=== PATIENT | female | born 1985 | race Caucasian/White ===

== ENCOUNTER 2017-01-16 20:56 | Inpatient (IN) | payer BC ==
[~2017-01-16] VITALS: Ht 170.2 cm; Wt 83.0 kg
[~2017-01-16 20:56] MED LIST: BCPILLS PO
[2017-01-16] MEDS ORDERED: LACTATED RINGER'S 1000ML 1,000 ML IV SCH (20:59)
[2017-01-16] MEDS ORDERED: LACTATED RINGER'S 1000ML 1,000 ML IV PRN (20:59)
[2017-01-16 21:43] LABS: HEMATOCRIT 34.3 % (37-47); MEAN CELL VOLUME 82.5 fL (80-100); MEAN CORPUSCULAR HEMOGLOBIN 27.6 pg (25-34); MEAN CORPUSCULAR HGB CONC 33.5 g/dl (32-36); MEAN PLATELET VOLUME 9.6 fL (7.4-10.4); PLATELET COUNT 207 K/uL (130-400); RED BLOOD COUNT 4.16 M/uL (4.2-5.4); WHITE BLOOD COUNT 10.01 K/uL (4.8-10.8)
[2017-01-16] MEDS ORDERED: LACTATED RINGER'S 1000ML 500 ML IV PRN (21:43)
[2017-01-16] MEDS ORDERED: OXYTOCIN 30 UNITS/500ML NSS IV PRN (21:45)
[2017-01-16] MEDS ORDERED: MAGN400T6 PO (22:34)
[2017-01-16] MEDS ORDERED: FOLI1TAB7 PO (22:34)
[2017-01-16 22:37] VITALS: Ht 170.2 cm; Wt 83.0 kg
[2017-01-17] MEDS ORDERED: LACTATED RINGER'S 1000ML 1,000 ML IV SCH (03:56)
[2017-01-17] MEDS ORDERED: HYDROCORTISONE ACETATE 25 MG SUPP PR PRN (04:00)
[2017-01-17] MEDS ORDERED: LANOLIN OINT EXT PRN ×2 (04:00)
[2017-01-17] MEDS ORDERED: ACETAMINOPHEN 325 MG TAB PO PRN (04:00)
[2017-01-17] MEDS ORDERED: ACETAMINOPHEN/CODEINE 300/30MG TAB PO PRN ×2 (04:00)
[2017-01-17] MEDS ORDERED: DIPHTHERIA/TETANUS/PERTUSSIS 0.5 ML SYR/VIAL IM. ONE (04:00)
[2017-01-17] MEDS ORDERED: OXYTOCIN 30 UNITS/500ML NSS IV PRN (04:00)
[2017-01-17] MEDS ORDERED: SUPERCREAM 0.870 % 15GM JAR EXT PRN (04:00)
[2017-01-17] MEDS ORDERED: MEASLES, MUMPS & RUBELLA VIRUS VIAL SQ. ONE (04:00)
[2017-01-17] MEDS ORDERED: BENZOCAINE 20% AER SPR 82.5 GM CAN EXT PRN (04:00)
--- NOTE | 2017-01-17 04:01 | Vaginal Delivery Summary ---
Vaginal Delivery Summary Delivery Note live female over intact perineum ANABELA with Apgars 8/9 weight pending. Delayed cord clamping followed by cord blood and spontaneous delivery of intact placenta. No tears. Final sponge and instrument count are correct. Mom and bay stable.
[2017-01-17] MEDS: IBUPROFEN 600 MG TAB PO PRN ×3 (04:52→17:33)
[2017-01-17 06:05] VITALS: BP 112/59; PULSE 83; TEMP 36.5; TEMP 37
[2017-01-17] MEDS: PRENATAL VITAMIN TAB PO SCH (07:45)
[2017-01-17] MEDS: DOCUSATE SODIUM 100 MG CAP PO SCH ×2 (07:55→19:52)
[2017-01-17] MEDS: FERROUS SULFATE 325 MG TAB PO SCH (07:55)
[2017-01-17 08:45] VITALS: BP 120/71; PULSE 87; TEMP 37.2
[2017-01-17 12:15] VITALS: BP 125/72; PULSE 71; TEMP 37.5
[2017-01-17 15:50] VITALS: BP 110/69; PULSE 79; TEMP 37.5
[2017-01-17 18:45] VITALS: BP 124/75; PULSE 68; TEMP 37.2
[2017-01-17 23:25] VITALS: BP 101/63; PULSE 65; TEMP 37.2
[2017-01-18 05:15] VITALS: BP 113/75; PULSE 59; TEMP 37.1
[2017-01-18 07:31] VITALS: BP 116/79; PULSE 68; TEMP 37; O2SAT 97
[2017-01-18] MEDS: DOCUSATE SODIUM 100 MG CAP PO SCH (08:00)
[2017-01-18] MEDS: FERROUS SULFATE 325 MG TAB PO SCH (08:00)
[2017-01-18] MEDS: PRENATAL VITAMIN TAB PO SCH (08:22)
--- NOTE | 2017-01-18 08:30 | OB/GYN Progress Note ---
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 Subjective conversation w/ patient, physical exam Ambulation: ambulating normally Voiding: no voiding problems Passing Gas: Yes Diet Tolerance: Regular Diet Lochia: Moderate Feeding Type: Breast Feeding Pain: 2/10 Notes: Doing well, no concerns. Pain well controlled. Lochia decreasing. Tolerating regular diet. Ambulating without difficulty. Would like to go home today. Objective Vital Signs Date Time Temp Pulse Resp B/P (MAP) Pulse Ox O2 Delivery O2 Flow Rate FiO2 01/18/17 07:31 37.0 68 20 116/79 (91) 97 Room Air 01/18/17 05:15 37.1 59 18 113/75 (88) Room Air 01/17/17 23:25 Room Air 01/17/17 23:25 37.2 65 16 101/63 (76) Room Air 01/17/17 18:45 37.2 68 18 124/75 (91) Room Air 01/17/17 15:50 37.5 79 18 110/69 (83) Room Air 01/17/17 15:50 Room Air 01/17/17 12:15 37.5 71 18 125/72 (89) Room Air 01/17/17 08:45 37.2 87 18 120/71 (87) Room Air Physical Exam General Appearance: WELL-APPEARING Respiratory/Chest: chest non-tender, lungs clear Cardiovascular: regular rate, rhythm Abdomen: normal bowel sounds, soft Fundus: Firm Extremities: normal range of motion, non-tender, no calf tenderness Laboratory Results Last 24 Hours Test 01/18/17 04:44 Assessment and Plan Post- Day Number: 1 Continue Routine Care: -D/C home today -F/U in 6 weeks.
--- NOTE | 2017-01-18 08:31 | Discharge Instructions ---
Discharge Instructions Date of Service Jan 18, 2017. Admission Reason for Admission: Check Ruptured Membranes Discharge Discharge Diagnosis / Problem: Vaginal Delivery Discharge Goals Goal(s): Routine recovery after delivery Medications Continue Dispensed Medications: supercream, dermaplast, tucks, lansinoh Activity Recommendations Activity Limitations: per Instructions/Follow-up section . Instructions / Follow-Up Instructions / Follow-Up ACTIVITY RECOMMENDATIONS: * Gradual return to full activity over the next 2-3 weeks. * No lifting - nothing heavier than baby over the next 2-3 weeks. * Do not engage in vigorous exercise, sexual activity or sports until cleared by your physician. * Do not drive or operate any motorized equipment until cleared by your physician. * You may shower/bathe daily. BREAST CARE: If you are not breast feeding: * Wear a supportive bra 24 hours a day for one to two weeks. * Avoid stimulating your breasts and nipples as much as possible during the first few weeks after delivery. * When taking a shower, have the warm water hit your back, not breasts. * When your breasts feel full, apply ice packs. Usually three to four times a day helps ease the discomfort. * Take a mild pain medication (Tylenol/Motrin) when you are uncomfortable. If breast feeding: * Use breast milk to lubricate nipples. Lansinoh cream may be used for sore nipples. You do not need to remove cream prior to breast feeding. If using a different brand of cream, check the label for directions regarding removal of cream prior to nursing. * Wear a supportive bra. * If having problems with breasts or breast feeding, call a automotive internet sales consultant or your health care provider. EPISIOTOMY CARE: After delivery, if you have an episiotomy (stitches), the following steps will ease discomfort and aid healing. * For the first 24 hours after delivery, place ice packs next to your episiotomy to help reduce swelling. * After the first 24 hour-period, sitz baths, either portable or in the tub, are suggested. A shower with a shower arm sprayed over the episiotomy may be comforting. * Serene care should be done after each voiding and bowel movement. Squirt warm water from a plastic bottle over the perineum (region of the body between the anus and urinary opening) and pat dry. * Use Dermoplast to ease discomfort. Shake container. [place] directly over the episiotomy. * Place a Tucks on a clean sanitary pad next to your episiotomy. OVER THE COUNTER MEDICATION: * For discomfort or pain, you may use Acetaminophen (Tylenol), Ibuprofen (Advil ), or Naproxen (Aleve) following the package directions. * For constipation you may use Colace following the package directions. SPECIAL CARE INSTRUCTIONS: When you are discharged from the hospital, it is important for you to follow the instructions listed below: * During the first week at home, you should be able to care for yourself and your baby. In addition, the usual light household activities are encouraged. * Limit your activities to the way you feel. Do not try to clean the house or move furniture. Be sensible. * If you actively engage in sports and have done so up until the time of your delivery, you may resume these activities as soon as you feel able. This may take up to one month or even longer. Use good judgment. * Continue to take your vitamins for at least six weeks after the of your baby. * Your diet need not be limited unless you were on a special diet before your delivery. Breast-feeding mothers need around 2500 calories per day and at least 64-80 ounces of fluid per day (8 to 10 glasses). * You should eat foods from the four major food groups. Crash diets or fad diets are to be avoided. Eating lean meats, fresh fruits and vegetables, low-fat dairy products, high fiber foods and a regular exercise program, will help you get back to your pre- weight without putting your health at risk. * Constipation is sometimes a problem after delivery. Take a mild laxative as needed. If breast feeding, Milk of Magnesia is acceptable to use. You may use a suppository or Fleets enema if no episiotomy. * A daily shower or tub bath is suggested. Be sure to thoroughly and gently dry the perineum. * A bloody vaginal discharge will usually continue until around four weeks post . A small amount of bleeding may continue for as long as six weeks. Vaginal discharge changes from the bright red bleeding after delivery to pink then brownish and finally yellowish-pink before becoming white and disappearing. * Bleeding may increase with activity. Your first period may come in 4-8 weeks. If you are breast feeding, your period may be delayed even longer. * [place] (sex) can begin whenever both you and your partner feel comfortable and do not have any form of genital infection. It is recommended that you wait until after your return appointment and discuss with your physician. If you have questions, please talk to your health care practitioner. A condom should be used to prevent infection and . * Foreplay, gentle intercourse and lubrication is very important the first several times to prevent pain. A water-based lubricant such as K-Y jelly or Astroglide may be used. * Tampons may be used six weeks after delivery. * Douching should be avoided for 6 weeks after delivery. * If you have RH negative blood and your baby is RH positive, you will receive RHOGAM by injection prior to discharge. The nurse will give you a card to keep with you that has the date and place that you received RHOGAM after delivery. * During your care, you had a Rubella screen done to check for the presence of rubella antibodies in your blood. If your test was negative, you will receive a Rubella vaccine prior to discharge. This vaccine may cause a fever, soreness at the injection site and flu-like symptoms. If these symptoms persist, notify your health care practitioner. is not advised for three months after a Rubella vaccine. There is a higher chance of having a baby with defects if conceived within three months of getting the vaccine. * If you were discharged 24 hours from delivery or before 48 hours: Visiting nurses will come to your home 48 hours after discharge to assess you and your baby. The visiting nurse will meet with you while you are in the hospital to arrange a time and get directions to your home. * Verbalizes understanding of car seat law as reviewed with patient nursing. * Car Seat hand-out given and reviewed with patient by nursing. * Shaken baby information reviewed with patient by nursing. Call you doctor if: * Heavy bleeding (saturating several pads an hour) or passing clots the size of your fist. * A fever >101 degrees F (38.3 degrees C) on two occasions four hours apart and/or chills. * Unusual pain in the pelvic or vaginal areas. * "Baby Blues" lasting longer than two weeks. If you have any questions or concerns, call your health care practitioner at . FOLLOW-UP VISIT: * Please call the office at to schedule a 6 week examination. It is important you keep this appointment. * It is important for you to make arrangements for either yearly or twice yearly check-ups thereafter. Current Hospital Diet Patient's current hospital diet: Regular OB Diet Discharge Diet Recommended Diet: Regular OB Diet Pending Studies Studies pending at discharge: no Medical Emergencies . Who to Call and When: Medical Emergencies: If at any time you feel your situation is an emergency, please call 911 immediately. . Non-Emergent Contact Non-Emergency issues call your: Primary Care Provider, Fur Blender . . "Provider Documentation" section prepared by Todd Marion. . VTE Core Measure Inpt VTE Proph given/why not?: Treatment not indicated
[2017-01-18 08:49] LABS: HEMATOCRIT 35.1 % (37-47)
[2017-01-18 12:16] VITALS: BP_DIAS 79; PULSE 68; TEMP 37
[2017-01-18] MEDS ORDERED: BISACODYL 5 MG TABEC PO SCH (20:00)
[2017-01-19] MEDS ORDERED: BISACODYL 10 MG SUPP PR PRN (07:00)
== END 2017-01-18 13:15 | disposition home or self-care (01) | DRG 775 ==
LOC: C.LD 20:56 → C.OPB 20:56 → C.LD 21:04 → EEVIPCON 21:04 → C.OBG 01-17 06:18 → EDSTATUS 01-20 20:54
PROVIDERS: ADMIT Obstetrics & Gynecology; ATTEND Obstetrics & Gynecology
PROC: 10E0XZZ Delivery of Products of Conception, External Approach (ICD-10-PCS; principal; 2017-01-17)
DX: O42.92 Full-term premature rupture of membranes, unspecified as to length of time between rupture and onset of labor (principal); O35.2XX0 Maternal care for (suspected) hereditary disease in fetus, not applicable or unspecified; Z3A.39 39 weeks gestation of pregnancy; Z37.0 Single live birth

== ENCOUNTER 2017-03-11 20:00 | Emergency (ER) | payer BC ==
[~2017-03-11] VITALS: Ht 170.2 cm; Wt 76.6 kg
[~2017-03-11 20:00] MED LIST changes: -BCPILLS PO; +FOLI1TAB7 PO; +MAGN400T6 PO
[2017-03-11 20:06] VITALS: BP 126/83; PULSE 75; TEMP 36.7; O2SAT 96; Ht 170.2 cm; Wt 76.6 kg
[2017-03-11] MEDS ORDERED: CEFTRIAXONE SOD INJ 1 GM ADDVIAL IV STA (20:53)
[2017-03-11] MEDS ORDERED: CEPH500C PO (20:57)
[2017-03-11] MEDS ORDERED: CEPHALEXIN 500MG HOME PACK 1 EA BTL PO ONE (21:00)
[2017-03-11] MEDS ORDERED: CHOL1000 PO (22:34)
[2017-03-11] MEDS ORDERED: OMEG10007 PO (22:34)
--- NOTE | 2017-03-11 22:52 | EMERGENCY ROOM VISIT NOTE ---
History First contact with patient: 20:36 Chief Complaint: FINGER PAIN Stated Complaint: SWOLLEN PAINFUL CUT ON FINGER- RIGHT History of Present Illness The patient is a 31 year old female who presents to the Emergency Room with complaints of a swollen painful cut on her right index finger. The patient is [id number]-pmykwlok. The patient reports that she has had a cut on her finger for the past few days. She noticed a red streak going up the finger this afternoon, and was seen at the [facility] urgent care center before being sent here for further evaluation. The patient rates her discomfort a 3 out of 10. She denies any fevers or chills. She also denies any prior history of antibiotic resistant infections. She does not recall injuring her finger, and does not feel that she is at risk for a foreign body injury. Tetanus immunization is up-to-date. Review of Systems 10 system review was performed and was negative except for pertinent positives and negatives as indicated in history of present illness Past Medical/Surgical History Medical Problems: (1) Spontaneous rupture of membranes at term Medical Problems: (1) Courtney-Danlos syndrome (2) Spontaneous rupture of membranes at term Surgical Problems: (1) History of wisdom tooth extraction Family History FH: type 1 diabetes Social History Smoking Status: Never Smoker Alcohol Use: occasionally Marital Status: Housing Status: lives with family Occupation Status: employed Current/Historical Medications Scheduled Cephalexin Monohydrate (Keflex), 500 MG PO QID Cholecalciferol (Vitamin D3), 1,000 INTER.UNIT PO DAILY Fish Oil ([place]-3), 1 CAP PO DAILY Physical Exam Vital Signs Date Time Temp Pulse Resp B/P (MAP) Pulse Ox O2 Delivery O2 Flow Rate FiO2 03/11/17 20:06 36.7 75 16 126/83 96 Room Air Pain Rating (0-10): 0 Physical Exam CONSTITUTIONAL: Healthy and well nourished. Alert and oriented X 3 with positive affect. HEENT: Normocephalic, atraumatic. Pupils equal, round and reactive. NECK: Full active range of motion without discomfort. MUSCULOSKELETAL: Examination of the right index finger shows a small open wound on the radial aspect of the distal phalanx. There is mild edema and erythema at this site. She has no tenderness to palpation over the DIP or PIP joints. She has a small and faint lymphangitic streak across the dorsum of the index finger to the proximal third region of the second metacarpal. The erythema does not cross the wrist. There is no fusiform digital swelling. Capillary refill is less than 2 seconds. INTEGUMENTARY: No rash or other significant dermatologic conditions noted. NEUROLOGIC: No focal neurologic deficits noted. Right index fingertip is sensory intact. Medical Decision & Procedures Medications Administered Medications (Trade) Dose Ordered Sig/Jayro Route Start Time Stop Time Status Last Admin Dose Admin Ceftriaxone Sodium (Rocephin Inj) 1 gm NOW STAT IV 03/11/17 20:53 03/11/17 20:54 DC 03/11/17 21:12 1 GM Cephalexin Monohydrate (Keflex 500MG Home Pack) 1 homepack NOW ONCE PO 03/11/17 21:00 03/11/17 21:01 DC 03/11/17 21:55 1 HOMEPACK ED Course Patient history and physical exam were performed. Nurse's notes were reviewed. Vital signs were reviewed and were normal. Because the patient does have an infection of the finger, I did suggest administering IV Rocephin, and the patient was in agreement. She was then inserted Rocephin 1 g IV infusion. She was provided a home pack and prescription for Keflex. The patient was encouraged to seek reevaluation in 48 hours if the redness has not improved. She was instructed to return to the emergency department for any significantly worsening redness, swelling, pain, red streaks or fever. Ibuprofen or Tylenol as needed for pain. The patient was happy with plan of care, voiced understanding of all discharge instructions, refused any analgesics while in the emergency department, and denied any significant pain at the time of discharge. Medical Decision Medication Reconcilliation Current Medication List: was personally reviewed by sc Blood Pressure Screening Patient's blood pressure: Normal blood pressure Impression Primary Impression: Cellulitis of right index finger Departure Information Dispostion Home / Self-Care Condition GOOD Prescriptions Cephalexin Monohydrate (Keflex) 500 Mg Cap 500 MG PO QID for 7 Days, #28 CAP Prov: Ted Daugherty PA 03/11/17 Referrals No Doctor, Assigned Dima Childs M.D. (PCP) Forms HOME CARE DOCUMENTATION FORM, IMPORTANT VISIT INFORMATION Patient Instructions My [facility] Additional Instructions Complete all Keflex antibiotics as prescribed. Suggest keeping the wound covered with an antibiotic ointment and Band-Aid. The red streak should start to fade within the next 24-48 hours. Return to the emergency department for any significantly worsening redness, swelling, pain, advancing red streak or developing fever/chills.
== END 2017-03-11 21:56 | disposition home or self-care (01) ==
LOC: C.EDB 20:01 → C.EDA 21:56
DX: L03.011 Cellulitis of right finger (principal); Q79.6 Ehlers-Danlos syndromes; Z83.3 Family history of diabetes mellitus